=== PATIENT | female | born 2000 | race Caucasian/White ===

== ENCOUNTER 2024-05-22 18:45 | Emergency (ER) | payer SELFPAY ==
--- NOTE | 2024-05-22 18:51 | USR_ITS ---
PROCEDURE INFORMATION: Exam: US Duplex Upper Extremity Veins, Bilateral, Complete Exam date and time: 05/22/2024 7:03 PM Age: 23 years old Clinical indication: Pain; Arm, upper and arm, lower; Bilateral; Additional info: Thrombophlebitis, pain redness iv drug user TECHNIQUE: Imaging protocol: Real-time duplex ultrasound of the extremities with 2-D nash scale, color Doppler flow and spectral waveform analysis including responses to compression and other maneuvers (when performed) with image documentation. Complete exam focused on the bilateral upper extremity veins. COMPARISON: No relevant prior studies available. FINDINGS: Right deep veins: Internal jugular, innominate, subclavian, axillary, brachial, radial and ulnar veins patent without thrombus. Normal compressibility, augmentation response and/or Doppler waveforms. Left deep veins: Internal jugular, subclavian, axillary and brachial veins patent without thrombus. Normal compressibility, augmentation response and/or Doppler waveforms. Superficial veins: Unremarkable. Visualized cephalic and basilic veins are patent without thrombus. Soft tissues: Prominent subcutaneous edema in the antecubital fossa. No convincing organized collection. US/[id number] IMPRESSION: No sonographic evidence of deep venous thrombosis.
[2024-05-22 18:57] VITALS: BP 154/95; PULSE 104; RESP 18; TEMP 36.8; O2SAT 99; BMI 26.6
--- NOTE | 2024-05-22 19:03 | ED_ITS ---
HPI - Wound/Laceration 2 General: Chief Complaint: Wound/Laceration Stated Complaint: tammie AC redness and swelling Time Seen by Provider: 05/22/24 18:47 History of Present Illness: Presents to the ER by EMS from [facility] with bilateral multiple sores on her arm. Patient injected meth bilateral AC spaces bilateral wrist 2 to 3 days ago she said they were bad shots on it. I have thrombophlebitis with swelling redness in these areas. The painful upon touching. Patient does not had any fever or chills. Related Data Previous Rx's Medication Instructions Recorded sulfamethoxazole 800 1 tab PO BID #14 tabs 05/22/24 mg-trimethoprim 160 mg tablet (Bactrim DS) Allergies Allergy/AdvReac Type Severity Reaction Status Date / Time No Known Allergies Allergy Verified 05/22/24 19:00 Review of Systems 2 General: Reports: 10 or more systems reviewed and unremarkable except in HPI and below [facility] 2 Female Reproductive History: Date of last menstrual period: 05/05/24 Physical Exam 2 Const: COMMON NORMALS: no acute distress, average body habitus, patient oriented x3, no limitations, healthy appearing, alert and well nourished HENMT: COMMON NORMALS: normocephalic, atraumatic, hearing grossly normal bilaterally, external ears normal, Normal external nose present and moist oral mucous membranes HEAD & SCALP: normocephalic and atraumatic NOSE: Normal external nose present EXTERNAL EAR: Yes external ears normal Neck/C-Spine: COMMON NORMALS: no JVD Chest: COMMONS NORMALS: normal inspection of the chest and normal palpation of entire chest wall Resp: COMMON NORMALS: normal respiratory effort, No retractions, No use of accessory muscles and clear to auscultation bilaterally AUSCULTATION: clear to auscultation bilaterally Cardio: COMMON NORMALS: no JVD, regular rate, regular rhythm, S1 normal heart sound present, S2 normal heart sound present, No gallops present (Cardio), No clicks present (Cardio), No murmurs present (Cardio) and No rub (Cardio) R ATE: regular rate RHYTHM: regular rhythm HEART SOUNDS: S1 normal heart sound present and S2 normal heart sound present GI: COMMON NORMALS: Normal to inspection, nondistended, normoactive bowel sounds present, Soft to palpation, non-tender, No hepatosplenomegaly present and no masses PALPATION: Yes Soft to palpation and Yes No hepatosplenomegaly present Neuro: COMMON NORMALS: patient oriented x3 SENSORIUM/ORIENTATION: Yes alert Skin: NARRATIVE SKIN EXAM: , bilateral wrists spots on bilateral AC spaces bilateral wrist hard swollen indurated veins consistent with superficial thrombophlebitis Course 2 Vital Signs: Vital signs: Vital Signs Temperature 98.3 F 05/22/24 18:57 Pulse Rate 104 H 05/22/24 18:57 Respiratory Rate 18 05/22/24 18:57 Blood Pressure 154/95 05/22/24 18:57 Pulse Oximetry 99 05/22/24 18:57 Oxygen Delivery Me thod Room Air 05/22/24 18:57 MDM - Wound/Laceration Medical Decision Making Lab work reviewed, ultrasound no evidence of DVT or thrombophlebitis, these results was discussed with the patient. Patient be put on antibiotics and told to use warm compresses and stop doing IV drugs. Medical Records I reviewed the patient's medical records. Lab Data I reviewed the patient's lab results. 05/22/24 20:43 05/22/24 20:43 Radiology Impressions Venous Duplex 05/22/24 18:51 IMPRESSION: No sonographic evidence of deep venous thrombosis. Laboratory Results WBC 7.47 10^3/uL (3.29-11.43) 05/22/24 20:43 RBC 4.93 10^6/uL (3.85-5.65) 05/22/24 20:43 Hgb 15.10 g/dL (11.27-16.99) 05/22/24 20:43 Hct 46.2 % (36-47) 05/22/24 20:43 MCV 93.7 fl (85-98) 05/22/24 20:43 MCH 30.6 pg (27-33) 05/22/24 20:43 MCHC 32.7 g/dL (30-55) 05/22/24 20:43 RDW 12.8 % (12.1-15.1) 05/22/24 20:43 Plt Count 292 10^3/cmm (157-399) 05/22/24 20:43 MPV 9.5 fL (7.4-10.4) 05/22/24 20:43 Neut % (Auto) 56.3 % 05/22/24 20:43 Lymph % (Auto) 32.5 % 05/22/24 20:43 [place] % (Auto) 7.1 % 05/22/24 20:43 Eos % (Auto) 3.6 % 05/22/24 20:43 Baso % (Auto) 0.4 % 05/22/24 20:43 Neut # (Auto) 4.20 10^3/uL (1.8-7.7) 05/22/24 20:43 Lymph # (Auto) 2.4 10^3/uL (0.8-4.8) 05/22/24 20:43 [place] # (Auto) 0.5 10^3/uL (0.2-0.9) 05/22/24 20:43 Eos # (Auto) 0.3 10^3/uL (0.0-0.8) 05/22/24 20:43 Baso # (Auto) 0.0 10^3/uL (0.0-0.1) 05/22/24 20:43 Nucleated RBC % (auto) 0 % 05/22/24 20:43 Nucleated RBCs # 0.0 /100WBC 05/22/24 20:43 Sodium 141 mmol/L (136-145) 05/22/24 20:43 Potassium 3.6 mmol/L (3.5-5.1) 05/22/24 20:43 Chloride 105 mmol/L (98-107) 05/22/24 20:43 Carbon Dioxide 21 mmol/L (22-29) L 05/22/24 20:43 Anion Gap 18.6 (5-19) 05/22/24 20:43 BUN 13 mg/dL (6-20) 05/22/24 20:43 Creatinine 0.8 mg/dL (0.5-0.9) 05/22/24 20:43 GFR Calculation 90.5 mL/min (90-130) 05/22/24 20:43 Glucose 80 mg/dL (65-115) 05/22/24 20:43 Calculated Osmolality 291 mOsm/kg (285-295) 05/22/24 20:43 Lactic Acid 2.2 mmol/L (0.5-2.2) 05/22/24 20:43 Calcium 9.5 mg/dL (8.5-10.5) 05/22/24 20:43 Total Bilirubin 0.3 mg/dL (0.15-1.2) 05/22/24 20:43 AST 21 U/L (0-32) 05/22/24 20:43 ALT 13 U/L (0-33) 05/22/24 20:43 Alkaline Phosphatase 80 U/L (35-105) 05/22/24 20:43 C-Reactive Protein 3.0 mg/L (0.0-4.9) 05/22/24 20:43 Total Protein 7.8 g/dL (6.6-8.7) 05/22/24 20:43 Albumin 4.3 g/dL (3.5-5.2) 05/22/24 20:43 Globulin 3.5 g/dL (1.3-4.6) 05/22/24 20:43 Procalcitonin 0.05 ng/mL (0-0.5) 05/22/24 20:43 Urine Color Yellow (Yellow) 05/22/24 20: Urine Appearance Clear (CLEAR) 05/22/24 20: Urine pH 6.5 (5-7) 05/22/24 20: Ur Specific [place] 1.027 (1.005-1.030) 05/22/24 20: Urine Protein Trace (Negative) A 05/22/24 20: Urine Glucose (UA) Negative (Normal) 05/22/24 20: Urine Ketones Trace (Negative) 05/22/24 20: Urine Blood Negative (Negative) 05/22/24 20: Urine Nitrate Negative (Negative) 05/22/24 20: Urine Bilirubin Negative (Negative) 05/22/24 20: Urine Urobilinogen 1.0 mg/dL (Negative) 05/22/24 20: Ur Leukocyte Esterase Trace (Negative) A 05/22/24 20: Urine RBC 0-2 /hpf (0-2) 05/22/24 20: Urine WBC 6-10 /hpf (0-5) 05/22/24 20: Ur Squamous Epith Cells 11-20 /hpf (0-5) 05/22/24 20: Amorphous Sediment Not Reportable 05/22/24 20: Urine Bacteria 1+ /hpf (NONE) H 05/22/24 20:26 Hyaline Casts 18.61 /lpf 05/22/24 20:26 Urine Mucus 2+ /hpf 05/22/24 20:26 Urine Opiates Screen Negative ng/mL (Negative) 05/22/24 20:26 Ur Barbiturates Screen Negative ng/mL (Negative) 05/22/24 20:26 Ur Phencyclidine Scrn Negative ng/mL (Negative) 05/22/24 20:26 Ur Amphetamines Screen Positive ng/mL (Negative) H 05/22/24 20:26 U Benzodiazepines Scrn Negative ng/mL (Negative) 05/22/24 20:26 Urine Cocaine Screen Negative ng/mL (Negative) 05/22/24 20:26 U Marijuana (THC) Screen Negative ng/mL (Negative) 05/22/24 20:26 All radiology interpretation(s) finalized by discharge Discharge Plan Discharge Patient Disposition: Home Clinical Impression: Cellulitis Qualifiers: Site of cellulitis of extremity: upper extremity Laterality: unspecified laterality Condition: Stable Prescriptions: New sulfamethoxazole-trimethoprim [Bactrim DS] 800-160 mg tablet 1 tab PO BID Qty: 14 0RF Discharge Orders: Discharge ED (Routine); Ordered 05/22/24 Ordered By: Lionel Beaver Patient Instructions: Cellulitis Activity Restrictions/Additional Instructions: Your evaluation in the ER did not show any blood clots or abscess formation. You have been prescribed Bactrim DS as an antibiotic. Please take it as directed. Please follow-up with your family practitioner in the next 7 days for further evaluation and treatment. Coding Level of Care Code ED [employer] Operator for Jose Perez
[2024-05-22 20:34] LABS: Bilirubin Urine Negative (Negative); Blood Urine Negative (Negative); Glucose Urine UA Negative (Normal); Ketones Urine Trace (Negative); Leukocyte Esterase Urine Trace (Negative); Nitrate Urine Negative (Negative); Protein Urine Trace (Negative); Specific Gravity, Urine 1.027 (1.005-1.030); Urine Appearance Clear (CLEAR); Urine Color Yellow (Yellow); pH Urine 6.5 (5-7)
[2024-05-22 20:41] LABS: Amphetamines Screen Urine Positive (Negative); Barbiturates Screen Urine Negative (Negative); Benzodiazepines Screen Urine Negative (Negative); Cocaine Screen Urine Negative (Negative); Opiate Screen Urine Negative (Negative); PCP Screen Urine Negative (Negative); THC Screen Urine Negative (Negative)
[2024-05-22 20:47] LABS: Add Urine Microscopic? YES; Bacteria Urine 1+ /hpf; Hyaline Casts Urine 18.61 /lpf; RBC Urine 0-2 /hpf (0-2); Universal Test for UA Present (0)
[2024-05-22 20:56] LABS: Add Urine Culture? No; Mucus Urine 2+ /hpf
[2024-05-22 20:56] LABS: Basophils % 0.4 %; Eosinophils # 0.3 10^3/uL (0.0-0.8); Eosinophils % 3.6 %; Hematocrit 46.2 % (36-47); Lymphocytes # 2.4 10^3/uL (0.8-4.8); Lymphocytes % 32.5 %; Mean Corpuscular HGB Conc 32.7 g/dL (30-55); Mean Corpuscular Hemoglobin 30.6 pg (27-33); Mean Corpuscular Volume 93.7 fl (85-98); Mean Platelet Volume 9.5 fL (7.4-10.4); Monocytes # 0.5 10^3/uL (0.2-0.9); Monocytes % 7.1 %; Neutrophils % 56.3 %; Nucleated Red Blood Cells % 0 %; Platelet Count 292 10^3/cmm (157-399); Red Blood Count 4.93 10^6/uL (3.85-5.65); Red Cell Distribution Width 12.8 % (12.1-15.1); White Blood Count 7.47 10^3/uL (3.29-11.43)
[2024-05-22 21:18] LABS: Alanine Aminotransferase 13 U/L (0-33); Albumin Level 4.3 g/dL (3.5-5.2); Alkaline Phosphatase 80 U/L (35-105); Aspartate Amino Transferase 21 U/L (0-32); Blood Urea Nitrogen 13 mg/dL (6-20); Calcium 9.5 mg/dL (8.5-10.5); Carbon Dioxide 21 mmol/L (22-29); Chloride 105 mmol/L (98-107); Creatinine Clr Calc Pharmacy 111.0367; Globulin 3.5 g/dL (1.3-4.6); Glomerular Filtration Rate 90.5 mL/min (90-130); Glucose 80 mg/dL (65-115); Osmolality Calculated 291 mOsm/kg (285-295); Sodium 141 mmol/L (136-145); Total Bilirubin 0.3 mg/dL (0.15-1.2); Total Protein 7.8 g/dL (6.6-8.7)
[2024-05-22 21:19] LABS: Lactic Sepsis W/Reflex 2.2 mmol/L (0.5-2.2)
[2024-05-22 21:20] LABS: Anion Gap 18.6 (5-19); Potassium 3.6 mmol/L (3.5-5.1)
[2024-05-22 21:24] LABS: Procalcitonin 0.05 ng/mL (0-0.5)
[2024-05-22 21:44] VITALS: BP 154/95; PULSE 82; O2SAT 100
[2024-05-22 22:42] LABS: Reflex Lactate Order REFLEX LACTIC ORDERD
== END 2024-05-22 21:45 | disposition home or self-care (01) ==
PROVIDERS: Emergency Provider Emergency Medicine
DX: L03.119 Cellulitis of unspecified part of limb (principal)
CPT/HCPCS: 80053; 80306; 81001; 83605; 84145; 85025; 86140; 93970; 99284